=== PATIENT | male | born 1955 | race Caucasian/White ===

== ENCOUNTER 2016-10-10 11:10 | Inpatient (IN) ==
[2016-10-10] MEDS ORDERED: CATAPRES PO ONE (11:31)
[2016-10-10 12:10] LABS: MANUAL DIFF NEEDED? NO
[2016-10-10 12:16] LABS: ALLEN TEST YES; BE 19.4 mmoll (-3.0-3.0); BLOOD TYPE ARTERIAL; DRAW SITE R RADIAL; METHB 1.7 % (0.0-1.5); O2(CT) 14.6 mL/dL (15.0-23.0); PO2(98.6) 50 mmHg (60-100); SAMPLE BLOOD; SAO2 93.9 % (95.0-100.0); THB 11.8 g/dL (11.5-17.4); pH(98.6) 7.38 (7.35-7.45)
[2016-10-10 12:22] LABS: MODALITY CANNULA; PCO2(98.6) 82 mmHg (35-45)
[2016-10-10 12:23] LABS: BASO% 0.3 % (0.0-0.8); EOS# 0.04 X1000 (0.0-0.7); EOS% 0.7 % (0.0-10.0); HEMATOCRIT 37.6 % (42.0-52.0); LYMPH# 0.55 X1000 (1.2-3.4); MCH 32.1 PG (27-31); MCHC 31.9 g/dL (33-37); MCV 100.5 FL (81-99); MONO# 0.46 X1000 (0.11-0.59); MONO% 7.5 % (1.7-9.3); MPV 10.1 FL (7.4-10.4); NEUT% 82.5 % (42.2-75.2); PLT 209 X1000 (130-400); RBC 3.74 XMIL (4.7-6.1)
[2016-10-10 12:52] LABS: AGAP 6; ALBUMIN 3.7 g/dL (3.5-5.0); ALKALINE PHOSPHATASE 84 U/L (32-122); BUN 10 mg/dL (8-22); CALCIUM 9.1 mg/dL (8.8-10.2); CHLORIDE 87 mmol/L (98-107); COSMO 266; GOT 15 U/L (10-34); GPT 14 U/L (10-44); POTASSIUM 4.6 mmol/L (3.5-5.1); SODIUM 133 mmol/L (136-145); TCO2 40 mmol/L (25-35)
[2016-10-10] MEDS ORDERED: DUONEB (A & A) INH ONE (14:44)
--- NOTE | 2016-10-10 14:59 | Diag Imaging Result Document ---
PROCEDURE NAME: CHEST-PORTABLE - 10/10/2016 PORTABLE CHEST: FINDINGS: The lungs are hyperexpanded. The heart is not enlarged. The pulmonary vessels are small. There are scattered granuloma. No pleural effusions identified. No consolidation. IMPRESSION: 1. Emphysema. 2. Scattered granuloma. 3. Followup PA and lateral recommended to ensure there is no underlying larger nodule in the lower right lung.
[2016-10-10] MEDS ORDERED: PREDNISONE PO ONE (15:08)
[2016-10-10] MEDS ORDERED: ROCEPHIN 1 GM/NS 1 GM/50 ML IVPB IV ONE (15:39)
[2016-10-10] MEDS ORDERED: ZITHROMAX 500 MG/NS 500 MG/250 ML IVPB IV ONE (15:40)
[2016-10-10 16:06] LABS: URINE CULTURE NEEDED? NO; URINE MICRO REVIEW NEEDED? NO; URINE SOURCE CLEAN CATCH
[2016-10-10 16:11] LABS: BILIRUBIN URINE NEGATIVE (NEGATIVE); BLOOD URINE NEGATIVE (NEGATIVE); COLOR ORANGE; GLUCOSE URINE NEGATIVE (NEGATIVE); LEUKOCYTES URINE NEGATIVE (NEGATIVE); NITRITE URINE NEGATIVE (NEGATIVE); PROTEIN URINE TRACE mg/dL (NEGATIVE); SP GRAVITY URINE 1.014; TURBIDITY URINE HAZY (CLEAR); UR EPITHELIAL CELLS <10 /HPF (<10); URINE BACTERIA NEGATIVE /HPF; URINE RBC <10 /HPF (<10); URINE WBC <10 /HPF (<10); UROBILINOGEN URINE NORMAL (NORMAL)
--- NOTE | 2016-10-10 16:15 | EKG Report ---
Test Performed on : 10/10/2016 11:45:56 AM Test Reason : sob Blood Pressure : / mmHG Vent. Rate : 103 BPM Atrial Rate : 103 BPM P-R Int : 140 ms QRS Dur : 088 ms QT Int : 348 ms P-R-T Axes : 086 072 065 degrees QTc Int : 455 ms Sinus tachycardia. Cannot rule out Anterior infarct (cited on or before 12-JAN-2014) Abnormal ECG When compared with ECG of 12-AUG-2016 16:03, ST no longer depressed in Lateral leads Unconfirmed Result
[2016-10-10] MEDS ORDERED: PROTONIX IV ONE (18:16)
[2016-10-10] MEDS ORDERED: SODIUM CHLORIDE 0.9% INJ ONE (18:16)
[2016-10-10] MEDS: DUONEB (A & A) INH SCH ×2 (19:00→23:00)
--- NOTE | 2016-10-10 19:46 | HISTORY AND PHYSICAL ---
CHIEF COMPLAINT: Shortness of breath. HISTORY OF PRESENT ILLNESS: Mr. Cochran is a 61-year-old white gentleman, advanced case of severe COPD, chronic respiratory failure, complaining of increasing shortness of breath, decreased exercise tolerance, hypoxemia. The patient was not using his BiPAP properly. The patient was still smoking at home. Home health nurse called me a few times. I recommended him to go to the ER but the patient did not. He did not come for followup. The patient usually stays in the house. He had a cough and chest congestion. The patient claims he was feeling hot and cold. He did not check his temperature. The patient lost significant weight. Complaining of epigastric discomfort, at times nausea. No vomiting. Poor appetite. The patient does have early satiety. No diarrhea, blood, or mucus in the stool. Denied any dysuria or hematuria. The patient does have a problem with anxiety and nervousness. No heat or cold intolerance. The patient does feel depressed at times. No suicidal or homicidal ideation. No further history available at this time. ALLERGIES: No known drug allergies. HOME MEDICATION: Includes patient was on inhaler. The patient had a BiPAP machine, nebulizer, Lexapro, Flomax, Prilosec, Zantac. Patient is noncompliant to followup and following medical advice and patient was blaming his medical condition on his noncompliance. PAST MEDICAL HISTORY: Advanced COPD, chronic respiratory failure, gastritis. Patient was recommended to have upper GI long ago; patient did not follow through. Anxiety, BPH, situational depression. PERSONAL HISTORY: Single. Lives at home. Does smoke. Denied alcohol or substance abuse. Fairly independent in activities of daily living. The patient claims he does not go out of the house. FAMILY HISTORY: Noncontributory. REVIEW OF SYSTEMS: As per HPI. Otherwise unobtainable. PHYSICAL EXAMINATION: GENERAL: Middle-aged white gentleman in mild distress. VITAL SIGNS: Blood pressure 159/106, pulse 105, respirations 22. Temperature was normal. SKIN: Normal turgor. No rash or petechiae. HEENT: Head atraumatic, normocephalic. [place] conjunctivae. Anicteric sclerae. Extraocular muscle movement normal. Fundus cannot be penetrated. Good oral hygiene. No tonsillopharyngeal congestion or exudate. Ears and nose benign. NECK: Supple. No JVD, thyromegaly, or lymphadenopathy. CHEST: Bilateral air entry present. Bilateral expiratory wheezing. Decreased air entry in both bases. CARDIOVASCULAR: S1 and S2 heard. No gallop or thrill. ABDOMEN: Soft, scaphoid. Bowel sounds present. Mild epigastric tenderness. EXTREMITIES: No cyanosis, clubbing. Some wasting of muscles of the legs. TEACHER VOCATIONAL TRAINING: Alert, awake. Able to move all 4 limbs. VASCULAR: No DVT or acute vascular compromise in the leg. LAB DATA: Hemoglobin 12, hematocrit 37.6, WBC count 6.11, platelet count 209,000. PH 7.38, pCO2 82, PO2 was 50; this was done on 4 L via nasal cannula. Electrolytes did reveal mild hyponatremia. Urinalysis results reviewed. CONSIDERATION: 1. Acute on chronic respiratory failure. 2. Chronic obstructive pulmonary disease exacerbation. 3. Gastritis. 4. Benign prostatic hypertrophy. 5. Situational depression. 6. History of coronary artery disease and myocardial infarction in the past. PLAN: Admit the patient. IV antibiotics. GI and DVT prophylaxis. Oxygen, pulmonary toilet. Pulmonary consult with Dr. Lara. Overall plan discussed with the patient. Encouraged patient to quit smoking. cc: Toan Beckford MD
[2016-10-10] MEDS: FLOMAX PO SCH (21:45)
[2016-10-10] MEDS: PEPCID PO SCH (21:46)
[2016-10-10] MEDS: NICODERM PATCH TD SCH (21:48)
[2016-10-10] MEDS: LOVENOX SUBQ SCH (21:50)
[2016-10-11] MEDS: DUONEB (A & A) INH SCH ×5 (04:00→23:00)
[2016-10-11 05:00] LABS: MANUAL DIFF NEEDED? NO
[2016-10-11 05:04] LABS: BASO% 0.2 % (0.0-0.8); HEMATOCRIT 37.2 % (42.0-52.0); HEMOGLOBIN 11.7 g/dL (14.0-18.0); LYMPH# 0.63 X1000 (1.2-3.4); LYMPH% 14.9 % (20.5-51.1); MCH 31.4 PG (27-31); MCHC 31.5 g/dL (33-37); MCV 99.7 FL (81-99); MONO% 7.1 % (1.7-9.3); MPV 9.9 FL (7.4-10.4); NEUT% 77.8 % (42.2-75.2); PLT 215 X1000 (130-400); RBC 3.73 XMIL (4.7-6.1)
[2016-10-11 05:54] LABS: AGAP 5; ALBUMIN 3.4 g/dL (3.5-5.0); ALKALINE PHOSPHATASE 77 U/L (32-122); BUN 11 mg/dL (8-22); CALCIUM 9.2 mg/dL (8.8-10.2); CHLORIDE 90 mmol/L (98-107); COSMO 273; GOT 14 U/L (10-34); GPT 12 U/L (10-44); MAGNESIUM 1.9 mg/dL (1.5-2.7); POTASSIUM 4.8 mmol/L (3.5-5.1); SODIUM 137 mmol/L (136-145); TCO2 42 mmol/L (25-35); TOTAL BILIRUBIN 0.28 mg/dL (0.20-1.00); TOTAL PROTEIN 5.9 g/dL (6.3-8.3)
--- NOTE | 2016-10-11 07:38 | PROGRESS NOTE ---
DATE: 10/11/2016 SUBJECTIVELY: Mr. Cochran is feeling some better. Chest congestion and cough is less. No high-grade fever or chills. Mild epigastric discomfort. No nausea, complaining of discomfort due to lying in the emergency room stretcher. The patient claims he was taking Flomax at home. I will resume it. OBJECTIVE: Vital signs: Noted. Neck: Supple. No JVD. Lungs: Few basal crepitations. Occasional wheezing. CVS: S1 and S2 heard. Abdomen: Soft, globular. Bowel sounds present. ON AWAKE COUNSELOR: Alert, awake. Able to move all 4 limbs. CONSIDERATION: 1. The patient admitted with chronic respiratory failure. 2. Acute bronchitis. 3. Chronic obstructive pulmonary disease exacerbation. 4. Gastritis. 5. Benign prostatic hypertrophy. PLAN: Clinically, patient is doing fair. We will continue current treatment. Close observation. Dr. Lara is going to evaluate the patient. The patient does have end-stage COPD and chronic respiratory failure. I again emphasized smoking cessation. If clinical condition permits, we will plan discharging patient home soon. His blood work done this morning reviewed and it was satisfactory. cc: Toan Beckford MD
[2016-10-11] MEDS: MIRALAX PO SCH (09:39)
[2016-10-11] MEDS: NICODERM PATCH TD SCH (09:39)
[2016-10-11] MEDS ORDERED: SODIUM CHLORIDE 0.9% INJ SCH (10:45)
[2016-10-11] MEDS ORDERED: PROTONIX IV SCH (11:00)
--- NOTE | 2016-10-11 15:23 | CONSULTATION ---
DATE OF CONSULTATION: 10/11/2016 REQUESTING PHYSICIAN: Dr. Toan Beckford. REASON FOR CONSULTATION: Respiratory failure. HISTORY OF PRESENT ILLNESS: Mr. Cochran is a 61-year-old white male with end-stage COPD and ongoing tobacco abuse, who was last admitted to this hospital in July of this year. The patient's CO2 on that admission was 110. He was discharged 08/19/2016 with a Trilogy machine. The patient reports he has been using that machine. The patient does have periodic abdominal bloating following meals, which causes him to have respiratory distress. He reports he was being evaluated by the home health nurse yesterday and his Trilogy was off because he is developing some minor skin breakdown over the bridge of the nose. He was having some gaseous distention and was noted to be in respiratory distress, and it was recommended he be brought to the emergency room. He reports he has significantly improved over the last 12 hours. PAST MEDICAL HISTORY: 1. End-stage COPD with ongoing tobacco use. 2. Chronic hypoxemic and hypercapnic respiratory failure on oxygen and the Trilogy noninvasive ventilator. 3. Coronary artery disease, status post prior myocardial infarction. 4. Pulmonary cachexia. 5. Gastroesophageal reflux. 6. BPH. SOCIAL HISTORY: He is disabled. He lives at home with a 93-year-old mother and a brother who is disabled. He does have outside caregivers that help with activities of daily living, cooking, and cleaning. FAMILY HISTORY: Noncontributory to current presentation. REVIEW OF SYSTEMS: As noted in the HPI. PHYSICAL EXAMINATION: General: Reveals a frail, white male who is awake and alert, with mild accessory muscle use. Vital signs: Blood pressure 122/72, heart rate 96, respiratory rate 18, oxygen saturation 95% on 4L per nasal cannula. HEENT: Pupils are equal reactive. Oropharynx is clear. Neck: Supple. Chest: Reveals markedly diminished breath sounds throughout all lung hoff. Cardiac: Increased rate. Regular rhythm. Abdomen: Soft, without hepatosplenomegaly. Extremities: Reveal significant muscle wasting. LABORATORIES: Chest x-ray reveals severe hyperexpansion with thinning of the vessels. No acute changes are identified. White blood count is 4.24, hemoglobin 11.7, and platelet count 215,000. Arterial blood gas yesterday: pH 7.38, pCO2 of 82, PO2 of 50 on 4L per nasal cannula. IMPRESSION: A 61-year-old white male with hypoxemic and hypercapnic respiratory failure, ongoing tobacco use, and pulmonary cachexia. The patient reports intermittent shortness of breath following meals. Shortness of breath improves when he burps. The patient most likely has a component of aerophagia, which may be exacerbated by his Trilogy. This was discussed with the patient and told him this was a common phenomenon in patients with his end-stage lung disease. We also discussed palliative care and hospice care. He reports he is not ready to discuss either of these services at this juncture. He appears to be returning to his baseline. RECOMMENDATIONS: 1. Okay to transfer back home in the next 24-48 hours. 2. Cycle Trilogy/BiPAP as needed for comfort. 3. Patient should eat a soft (low-carbohydrate) diet which is high in sugar and fats to help him reach his caloric needs. 4. Smoking cessation was recommended. 5. Continued end of life issues, as outlined above. cc: MD Toan Harris MD
[2016-10-11] MEDS ORDERED: ROCEPHIN 1 GM/NS 1 GM/50 ML IVPB IV SCH (18:00)
[2016-10-11] MEDS: PEPCID PO SCH (20:12)
[2016-10-11] MEDS: FLOMAX PO SCH (20:13)
[2016-10-11] MEDS: LOVENOX SUBQ SCH (20:13)
[2016-10-12] MEDS: DUONEB (A & A) INH SCH ×3 (03:15→11:23)
[2016-10-12] MEDS: MIRALAX PO SCH (09:46)
[2016-10-12] MEDS: NICODERM PATCH TD SCH (09:46)
[2016-10-12 13:26] VITALS: BP 115/72
--- NOTE | 2016-10-12 19:40 | CONSULTATION ---
DATE OF CONSULTATION: 10/12/2016 REASON FOR CONSULTATION: Evaluation of this patient with significant weight loss, decreased appetite and inability to eat. HISTORY OF PRESENT ILLNESS: Mr. Cochran is a 61-year-old gentleman seen by me in the office on 04/05/2015. At that time his complaint was that he is very sick when he wakes up in the morning and after he has a bowel movement he feels better. Then he becomes sick again 3 or 4 times a day. His appetite was decreased and he lost weight. He had some dysphagia, heartburn, nausea, left and right lower quadrant pain. He had intermittent diarrhea and constipation. He had to make about 3 trip to the bathroom to completely evacuate his colon. At that time I scheduled him for EGD and colonoscopy, however, he did not get them done. He was admitted by Dr. Beckford because of advanced chronic obstructive pulmonary disease, significant weight loss and extreme shortness of breath. He was seen by Dr. Cruz whose impression it was that he had severe cachexia secondary to advanced COPD with chronic respiratory failure. He recommended that the patient be on hospice care. Because of his significant weight loss, Dr. Beckford wanted my opinion regarding what can be done. PAST MEDICAL HISTORY: 1. Chronic pulmonary disease with chronic respiratory failure. 2. History of gastritis. 3. Anxiety. 4. Benign prostatic hypertrophy. 5. Situational depression. 6. Gallbladder disease. 7. Hypercholesterolemia. 8. Osteoarthritis of the right acromioclavicular joint and impingement of the shoulder. 9. He had sciatica on the left side for 20 years. 10. Ischemic heart disease. 11. He denied any hypertension or diabetes. FAMILY HISTORY: There is a family history of some sort of cancer, diabetes, mental illness, heart disease and hypertension. SOCIAL HISTORY: Never abused alcohol. He had been a heavy smoker but cut down on the smoking now. REVIEW OF SYSTEMS: The patient has significant weight loss. He has problems swallowing. Because of extreme shortness of breath he is having problems continuously speaking. He does not have any serious abdominal pain but is quite hungry but unable to eat. He has some constipation. No blood in stool or black stool. ALLERGIES: He is allergic to bees, hydrocodone, acetaminophen, and tramadol. PHYSICAL EXAMINATION: General: The patient is alert, oriented x3. He seems emaciated. He is very short of breath with respiratory rate of about 24-26. Vital Signs: Temperature is 98.3 degrees, pulse rate is 110 per minute, blood pressure is 115/72. Lungs: Accessory muscles of respiration working. Neck: Supple. There is no thyromegaly. Cardiovascular: Sounds are heard. Rhythm is regular. I could not hear any murmur. Lungs: Reveal hyperresonance on percussion with a few bilateral crackles and rhonchi. Abdomen: Flat, soft, nontender. No masses felt. Bowel sounds are heard. Extremities: Free of any edema. LAB DATA: WBC count is 4.24, hemoglobin 11.7, hematocrit 37.2, platelet count is 215,000. His blood gases revealed that his pH is 7.38, pCO2 is 82, PO2 is 50 on room air. Oxygen saturation was 87.9. is also low. Sodium is 137, potassium 4.8, chloride is 90, CO2 is 42, BUN is 11, creatinine is 0.6. Total protein is 5.9, albumin is 3.4, PT and SGOT are normal. IMPRESSION: 1. Chronic obstructive pulmonary disease with emphysema. 2. Chronic respiratory failure. 3. Weight loss which is secondary to #1 and #2. RECOMMENDATIONS: His problem is he is unable to consume enough calories because he is so short of breath. When he tries to swallow and the epiglottis closes, he will become short of breath. So it is hard to swallow for him. I explained to him that he can eat a small amount of food multiple times a day and also drink some Ensure or Boost supplements to keep up the calories. Even drinking that could be difficult so I asked him to drink slowly. He should totally completely stop smoking but he is smoking still a few cigarettes and that will make a big difference. He needs a lot more calories than he is getting because work of breathing causes him to lose a lot of calories. I encouraged him to eat small meals. Endoscopic procedures are at this point going to be extremely risky for him. He already had a CT scan which does not show any significant tumor in the stomach, therefore, I have no reason to suspect that I need to actually look into the stomach in this high risk patient. He understood this. I discussed the case with Dr. Beckford. He is going to be put on hospice care. cc: Toan Beckford MD
--- NOTE | 2016-10-13 06:14 | DISCHARGE SUMMARY ---
ADMISSION DATE: 10/10/2016 DISCHARGE DATE: 10/12/2016 FINAL DISCHARGE DIAGNOSES: 1. Chronic respiratory failure. 2. Pulmonary cachexia. 3. Acute bronchitis. 4. Gastritis and reflux disease. 5. BPH. 6. Pulmonary nodule. HISTORY OF PRESENT ILLNESS: Mr. Cochran is a 61-year-old white gentleman, a known case of COPD, chronic respiratory failure, on home Trilogy, home oxygen, bronchodilator treatment, not doing well, complaining of cough, chest congestion, shortness of breath. The patient was seen by home health nurse. Convinced him to come to the hospital. The patient had evaluated in the ER. The patient was in [id number] respiratory failure. With his increasing cough, chest congestion, the patient was getting desaturated very easily in his oxygenation. We decided to admit the patient for further care. The patient was given prednisone, IV antibiotics, bronchodilator treatment. The patient refused to take prednisone. It was making him very sick. HOSPITAL COURSE: Pulmonary consult obtained with Dr. Lara, who know the patient for many years. We both think patient has end-stage COPD, chronic respiratory failure. We offered him palliative care. The patient claims he is not ready. The patient does not come for followup. Unfortunately, he is still smoking at home. The patient is noncompliant to follow medical advice. The patient is doing better. I advised him to go have followup with the line out man. The patient did not go, and now the patient claimed he cannot go. I talked to Dr. Little, who is going to evaluate the patient, but considering his overall health and condition, the patient is not even a candidate for endoscope. His CT scan done last visit reviewed. The patient is very eager to go home. Clinically, he regained his baseline status. PHYSICAL EXAMINATION: Vital Signs: Noted. Neck: Supple. No JVD. Lungs: Bibas[place] crepitations. Occasional wheezing. No movement of accessory muscles of respiration. Cardiovascular: S1 and S2 heard. Abdomen: Soft, scaphoid. Bowel sounds present. No acute DVT. Central Nervous System: Alert, awake, able to move all 4 limbs. LABORATORY DATA: Yesterday, hemoglobin 11.7, hematocrit 37.2, platelet count 215, WBC count 4.24. Blood gas on admission: pH 7.38, pCO2 of 82, PO2 was 50. Electrolytes were fairly benign. BUN 11, creatinine 0.6. Urinalysis and chest x-ray results reviewed. DISCHARGE PLAN: I am going to discharge patient home on p.o. antibiotics. The patient cannot tolerate prednisone well, and he is doing okay without it. Will continue Prilosec, Flomax. I gave him a prescription for a nebulizer, which he will need for his respiratory failure, DuoNeb. Will resume home health. Follow up with me in 2 weeks. In case of more distress, call us back or go to the emergency room. Overall, discharge condition satisfactory. cc: Toan Beckford MD
--- NOTE | 2016-10-17 05:43 | PROVIDER DOCUMENTATION ---
This chart was entered by Raul Sullivan Scribe, acting as scribe for Chris Hobson MD. HPI-Respiratory General - General Stated Complaint: sob Time Seen by Provider: 10/10/16 11:19 Source: patient Allergies/Adverse Reactions: Patient Allergies Allergy/AdvReac Type Severity Reaction Status Date / Time No Known Allergies Allergy Verified 08/12/16 16:29 Home Medications: Home Medication List Medication Instructions Recorded Confirmed Last Taken Type Albuterol Sulfate [Proair Hfa] 2 puff IH Q4H PRN PRN 01/11/14 10/10/16 10/10/16 08:00 History Mometasone/Formoterol [Dulera 200 2 puff IH BID 01/11/14 10/10/16 10/10/16 08: 00 History Mcg/5 Mcg Inhaler] Tiotropium [place] Inhaler 1 puff INH QAM 01/11/14 10/10/16 10/10/16 08:00 History [Spiriva] Omeprazole [Prilosec] 40 mg PO DAILY #30 capsule. 01/13/14 10/10/16 10/09/16 08:00 Rx Nicotine Patch [Nicoderm Patch] 21 mg TD DAILY #0 [email or web address] 08/19/16 10/10/16 Unknown Rx Polyethylene Glycol 3350 [Miralax] 17 gm PO DAILY #30 powd.pack 08/19/16 Unknown Rx Saline Nasal [place] [[place] Nasal 2 ml YOANA PRN PRN #0 bottle 08/19/16 10/10/16 Unknown Rx [place]] Tamsulosin [Flomax] 0.4 mg PO QHS #0 capsule 08/19/16 10/10/16 10/09/16 20:00 Rx Albuterol 2.5MG/Ipratrop 0.5MG 3 ml INH Q4H neb 10/12/16 Unknown Rx [Duoneb (A & A)] CefUROXIME [Ceftin] 500 mg PO Q12HR #10 tablet 10/12/16 Unknown Rx - History of Present Illness-Resp Nature of Presenting Problem: 61 Y/O M PRESENTS TO THE ED C/O SHORTNESS OF BREATH. ONSET THIS MORNING. UPON EMS ARRIVAL PATIENT WAS 88% ON 3L NASAL. FAMILY STATES PATIENT RECENTLY TREATED FOR INFLUENZA. DENIES CHEST PAIN AND ALL OTHER SYMPTOMS. NO OTHER VOICED COMPLAINTS. Quality of Pain: reports: none Severity in ED: reports: mild Onset/Duration: reports: this morning Timing: reports: still present Exposure: reports: unknown cause Cough Quality/Degree: reports: no cough Current Respiratory Medication Therapy: Initiated see nurses note Modifying Factors: worse with: exertion Associated Symptoms: reports: shortness of breath Similar Symptoms Previously?: Yes Recently seen or treated by another doctor?: No Review of Systems - Adult - REVIEW OF SYSTEMS - ADULT Constitutional: denies: chills, fever Eyes: reports: no symptoms reported Ears, Nose, Mouth & Throat: reports: no symptoms reported Cardiovascular: denies: chest pain, palpitations Respiratory: reports: shortness of breath. denies: cough Gastrointestinal: denies: diarrhea, nausea, vomiting Genitourinary: denies: dysuria, frequency Musculoskeletal: denies: bone pain, muscle aches Integumentary: denies: itching, rash Neurological: denies: dizziness/vertigo, headache/migraines Psychiatric: reports: no symptoms reported Endocrine: reports: no symptoms reported Hematologic/Lymphatic: reports: no symptoms reported Allergic/Immunologic: reports: no symptoms reported All Other Systems: Reviewed and Negative Past History - Adult - PAST MEDICAL HISTORY-ADULT Review of Records: reports: Nursing Assessment Review, Medications Reviewed Major Childhood Illnesses: reports: denies history Cardiovascular: reports: HTN Respiratory: reports: COPD, other (home O2) Gastrointestinal: reports: cholelithiasis Obstetrical/Gynecological: reports: denies history Genitourinary: reports: denies history Musculoskeletal: reports: denies history Neurological: reports: denies history Endocrine/Immune: reports: denies history Other Conditions: reports: denies history - FAMILY HISTORY Family History: reviewed, not pertinent Physical Exam-General - PHYSICAL EXAM-ADULT Initial Vital Signs Reviewed: Yes - CONSTITUTIONAL General Appearance: alert, moderate distress, anxious - EYES Eyes: PERRL/EOMI, pink conjunctivae - HEAD, EARS, NOSE, MOUTH & THROAT HENMT: moist mucous membranes, normal ENT inspection - NECK Neck: full range of motion, normal inspection - RESPIRATORY Respiratory: normal breath sounds, no pleuratic chest pain, respiratory distress , accessory muscle use - CARDIOVASCULAR Cardiovascular: normal peripheral pulses, tachycardia - GASTROINTESTINAL (ABDOMEN) Abdominal Exam: normal bowel sounds, non tender, soft - MUSCULOSKELETAL Back Exam: normal inspection, no vertebral tenderness Extremity: normal range of motion, normal capillary refill - SKIN Integumentary: normal color, diaphoresis - NEUROLOGIC Neurologic: slag wheeler II-XII nml as tested, no motor/sensory deficits - PSYCHIATRIC Psych/Mental Status: normal mood/affect, oriented x 3 Progress - PLAN OF CARE/RESULTS Progress/Plan/Lab Results: Orders Category Date Time Status Admit Patient To Inpatient Status Routine AdmDCTranf 10/10/16 15:38 Ordered Nursing- MD Consult Request ROUTINE Care 10/10/16 22:34 Active Physician/Provider Consults Routine Cons 10/10/16 22:34 Ordered Regular Diet Diet 10/10/16 15:16 Completed cxr [CHEST-PORTABLE] [RAD] Stat Exams 10/10/16 11:42 Completed ABG [RESP] Routine Lab 10/10/16 12:05 Completed BLOOD CULTURE [BLDCUL] Stat Lab 10/10/16 16:05 Completed CBC WITH DIFF [HEME] Routine Lab 10/11/16 04:50 Completed CBC WITH ELECTRONIC DIFF [HEME] Stat Lab 10/10/16 12:00 Completed CMP [COMPREHENSIVE METABOLIC PANEL] [CHEM] Stat Lab 10/10/16 12:00 Completed COMPREHENSIVE METABOLIC PANEL [CHEM] Routine Lab 10/11/16 04:50 Completed MAGNESIUM [CHEM] Routine Lab 10/11/16 04:50 Completed UA NIMS W/REFLEX CULT [URINALYSIS] Stat Lab 10/10/16 13:08 Completed Albuterol 2.5MG/Ipratrop 0.5MG [Duoneb (A & A)] Med 10/10/16 14:44 Discontinued 3 ml INH NOW ONE Albuterol 2.5MG/Ipratrop 0.5MG [Duoneb (A & A)] Med 10/10/16 19:00 Discontinued 3 ml INH Q4H Azithromycin 500 mg/Ns [Zithromax 500 mg/Ns] Med 10/10/16 15:40 Discontinued 500 mg in 250 ml IV NOW CefTRIAXONE 1 GM/NS [Rocephin 1 gm/Ns] Med 10/10/16 15:39 Discontinued 1 gm in 50 ml IV NOW CefTRIAXONE 1 GM/NS [Rocephin 1 gm/Ns] Med 10/11/16 18:00 Discontinued 1 gm in 50 ml IV Q24H Clonidine [Catapres] Med 10/10/16 11:31 Discontinued 0.2 mg PO NOW ONE Enoxaparin [Lovenox] Med 10/10/16 20:00 Discontinued 30 mg SUBQ Q24H Famotidine [Pepcid] Med 10/10/16 21:00 Discontinued 40 mg PO QHS Nicotine Patch [Nicoderm Patch] Med 10/10/16 20:00 Discontinued 21 mg TD DAILY Pantoprazole [Protonix] Med 10/10/16 18:16 Discontinued 40 mg IV NOW ONE Polyethylene Glycol 3350 [Miralax] Med 10/11/16 09:00 Discontinued 17 gm PO DAILY Prednisone Med 10/10/16 15:08 Discontinued 60 mg PO NOW ONE Sodium Chloride 0.9% Med 10/10/16 18:16 Discontinued 10 ml INJ NOW ONE Tamsulosin [Flomax] Med 10/10/16 21:00 Discontinued 0.4 mg PO QHS Aerosol Treatments Routine Oth 10/10/16 14:44 Completed Aerosol Treatments Routine Oth 10/10/16 18:18 Completed Aerosol Treatments Stat Oth 10/10/16 14:44 Completed Aerosol Treatments Stat Oth 10/10/16 18:18 Completed EKG [EKG] Stat Ther 10/10/16 11:42 Draft Transfer/Admit Order [TRANSFER] Routine Transfer 10/10/16 18:33 Completed Result Diagrams: 10/11/16 04:50 10/11/16 04:50 - EKG 1 Time of EKG reading by physician:: 11:48 EKG Read and Signed by:: Rosas Hernandez EKG Interpretation (*Must complete 3 of following elements*): Abnormal Rate: 103 Rhythm: sinus tachycardia [place]: normal QRS: normal DE Interval: normal ST Wave: normal - XRAY 1 XRAY Study: Chest Impression: Abnormal, See EMR Report (emphysema; scattered granuloma) - CONSULTS/PCP/HOSPITALIST Notification #1 *Consult/PCP/Hospitalist*: Dr Beckford Time Discussed: 15:35 Consult Disposition: Admit Departure - Departure Time of Disposition Decision: 15:38 DIAGNOSIS: COPD exacerbation Disposition: ADMITTED INPATIENT 09 Certified Medical Emergency: Emergent Condition: Stable - Critical Care Note This patient required my direct & personal management of CC.: No This chart was documented by the indicated scribe, (Raul Sullivan Scribe) and accurately reflects the services I performed and decisions made by me, Chris Hobson MD, as attested by the provider's signature.
== END 2016-10-12 15:25 | disposition home or self-care (01) ==
LOC: ED 11:10 → EDIPHOLD 19:50 → 3N 10-11 14:49
PROVIDERS: ADMIT Internal Medicine; ATTEND Internal Medicine

== ENCOUNTER 2017-01-04 19:56 | Inpatient (IN) ==
[2017-01-04] MEDS ORDERED: SOLU-MEDROL IV ONE (20:12)
[2017-01-04 20:21] LABS: ALLEN TEST YES; BE 19.4 mmoll (-3.0-3.0); BLOOD TYPE ARTERIAL; DRAW SITE R BRACHIAL; METHB 1.1 % (0.0-1.5); O2(CT) 16.1 mL/dL (15.0-23.0); PO2(98.6) 128 mmHg (60-100); SAMPLE BLOOD; SAO2 99.9 % (95.0-100.0); THB 12.1 g/dL (11.5-17.4); pH(98.6) 7.31 (7.35-7.45)
[2017-01-04 20:24] LABS: MODALITY BI PAP; PCO2(98.6) 100 mmHg (35-45)
[2017-01-04 20:31] LABS: BASO% 0.3 % (0.0-0.8); EOS# 0.05 X1000 (0.0-0.7); EOS% 0.3 % (0.0-10.0); HEMOGLOBIN 12.7 g/dL (14.0-18.0); IMM GRAN# 0.04 X1000 (0.0-0.04); IMM GRAN% 0.3 % (0.0-0.5); LYMPH# 1.09 X1000 (1.2-3.4); MANUAL DIFF NEEDED? NO; MCH 32.3 PG (27-31); MCV 104.3 FL (81-99); MONO# 1.71 X1000 (0.11-0.59); MONO% 10.9 % (1.7-9.3); MPV 10.6 FL (7.4-10.4); NEUT% 81.2 % (42.2-75.2); PLT 239 X1000 (130-400); RBC 3.93 XMIL (4.7-6.1)
--- NOTE | 2017-01-04 20:36 | Diag Imaging Result Doc PS360 ---
EXAM: CHEST-PORTABLE HISTORY: copd TECHNIQUE: Erect AP portable chest at 2019 COMMENT: There is COPD with hyperinflation of the lungs. There are apparent pleural calcifications bilaterally. There is increased interstitial opacity in the left lower lobe compared to 10/10/2016. Otherwise has been no significant change. IMPRESSION: COPD. The left lower lobe bronchopneumonia. Electronically signed by Brannon Maza 01/04/2017 8:33 PM
[2017-01-04 20:46] LABS: AGAP 7; ALKALINE PHOSPHATASE 103 U/L (32-122); BUN 15 mg/dL (8-22); CALCIUM 9.3 mg/dL (8.8-10.2); CHLORIDE 90 mmol/L (98-107); COSMO 279; GOT 19 U/L (10-34); GPT 16 U/L (10-44); POTASSIUM 4.7 mmol/L (3.5-5.1); SODIUM 139 mmol/L (136-145); TCO2 42 mmol/L (25-35); TOTAL BILIRUBIN 0.56 mg/dL (0.20-1.00); TOTAL PROTEIN 7.2 g/dL (6.3-8.3)
[2017-01-04] MEDS ORDERED: TYLENOL PO PRN (23:29)
[2017-01-04] MEDS: DUONEB (A & A) INH SCH (23:45)
[2017-01-05] MEDS: LEVAQUIN 750 MG/D5W 750 MG/150 ML IVPB IV SCH ×2 (00:16→22:44)
[2017-01-05] MEDS: MORPHINE IV PRN ×3 (00:16→20:02)
[2017-01-05] MEDS: PROTONIX IV SCH ×2 (00:16→22:44)
[2017-01-05] MEDS: DUONEB (A & A) INH SCH ×6 (03:12→23:27)
[2017-01-05 04:51] LABS: BASO% 0.1 % (0.0-0.8); HEMATOCRIT 35.3 % (42.0-52.0); HEMOGLOBIN 10.8 g/dL (14.0-18.0); IMM GRAN# 0.03 X1000 (0.0-0.04); IMM GRAN% 0.2 % (0.0-0.5); LYMPH# 0.32 X1000 (1.2-3.4); LYMPH% 2.5 % (20.5-51.1); MANUAL DIFF NEEDED? YES; MCH 31.9 PG (27-31); MCHC 30.6 g/dL (33-37); MCV 104.1 FL (81-99); MONO# 0.22 X1000 (0.11-0.59); MONO% 1.7 % (1.7-9.3); MPV 10.2 FL (7.4-10.4); NEUT% 95.5 % (42.2-75.2); PLT 199 X1000 (130-400); RBC 3.39 XMIL (4.7-6.1)
[2017-01-05 05:11] LABS: AGAP 3; BUN 15 mg/dL (8-22); CALCIUM 9.3 mg/dL (8.8-10.2); CHLORIDE 89 mmol/L (98-107); COSMO 277; SODIUM 137 mmol/L (136-145); TCO2 45 mmol/L (25-35)
[2017-01-05 05:25] LABS: BANDS 6 % (0-1); LYMPHS 4 % (21-51); MONO 2 % (1-9)
[2017-01-05] MEDS ORDERED: ROCEPHIN 1 GM/NS 1 GM/50 ML IVPB IV SCH (11:30)
[2017-01-05] MEDS ORDERED: VANCOMYCIN IV PER PHARMACY MISC SCH (11:45)
[2017-01-05] MEDS: SOLU-MEDROL IV SCH ×2 (12:11→22:44)
[2017-01-05] MEDS ORDERED: VANCOMYCIN 1,800 MG in NS 250 ML IV ONE (14:00)
--- NOTE | 2017-01-05 14:23 | PROGRESS NOTE ---
DATE: 01/05/2017 A 61-year-old, white gentleman, advanced COPD, chronic respiratory failure with hypercarbia. Not doing well last few days. The patient had increasing shortness of breath, feeling hot and cold, increasing cough. His O2 saturation at home was low. Patient called ambulance, was brought to the emergency room. In the emergency room patient found to have hypercarbic respiratory failure. Chest x-ray showed COPD, left lower lobe bronchopneumonia. Patient evaluated and admitted for further care. The patient is very noncompliant. After discharge from last hospitalization the patient did not come for followup with me or either with the energy trading analyst. The patient is still smoking though patient claimed lately he was not able to smoke. Oral intake is fair to poor. Unquantified weight loss. He does have chronic abdominal pain. The patient denied any dysuria or hematuria. At times, urinary hesitancy. No diarrhea. History part was limited. PAST MEDICAL HISTORY: Advanced COPD, chronic respiratory failure, history of BPH, gastritis, pulmonary cachexia, coronary artery disease. OBJECTIVE: Vital Signs: Vital signs noted. Patient currently is on BiPAP. Neck: Is supple. No JVD. The patient does have the redness on the nose due to his mask of BiPAP. Lungs: Bilateral inspiratory crepitations. CVS: S1 and S2 heard. Abdomen: Soft, globular. Bowel sounds present. Extremities: No cyanosis, clubbing. No acute DVT. WAITER/WAITRESS FORMAL: Alert, awake able to move all 4 limbs. LABORATORY DATA: Did reveal leukocytosis with left shift. Blood gas did reveal hypercarbic respiratory failure. Electrolytes: BUN was 15, creatinine 0.5. Chest x-ray results reviewed. CONSIDERATION: Chronic respiratory failure. The patient does have hypercarbia, pulmonary cachexia, pneumonia, gastritis, BPH, coronary artery disease. The patient requested DNR but patient claims he is not sure. He may change his mind. Meanwhile will continue broad-spectrum antibiotics. Pulmonary toilet. Close observation. BiPAP. Overall plan discussed with the patient. GI prophylaxis and DVT prophylaxis. cc: Toan Beckford MD
--- NOTE | 2017-01-05 19:38 | CONSULTATION ---
DATE OF CONSULTATION: 01/05/2017 REQUESTING PHYSICIAN: Toan Beckford MD. REASON FOR CONSULTATION: Respiratory failure. HISTORY OF PRESENT ILLNESS: Mr. Cochran is a 61-year-old, white male with end-stage COPD, chronic hypoxemic and hypercapnic respiratory failure, who was last admitted to this hospital in September of this year with a pCO2 greater than 100. The patient was discharged home to [facility]. The patient continues to smoke. He has not followed up with his physician but paperwork has been arranged for ongoing treatment from the office. The patient reports 3-4 days ago he developed increased cough without significant sputum production, fevers and shaking chills, and progressive decrease in his oxygen saturation below 85 despite supplemental oxygen. The patient called an ambulance and was brought to the emergency room. Arterial blood gas revealed pH 7.31, pCO2 of 100, PO2 of 128 on 60% FiO2. Chest x-ray reveals new infiltrate in the left lung base. PAST MEDICAL HISTORY: 1. End-stage COPD with ongoing tobacco use. 2. Pulmonary cachexia. 3. Coronary artery disease with prior myocardial infarction. 4. Status post cholecystectomy. 5. Gastroesophageal reflux. 6. BPH. SOCIAL HISTORY: Patient is disabled. He also takes care of a brother who is disabled and has psychiatric issues. He has an elderly mother who he also helps to manage care. He previously worked as an EMT. No alcohol use. FAMILY HISTORY: Noncontributory to current presentation. REVIEW OF SYSTEMS: As noted in the HPI. PHYSICAL EXAMINATION: General: Reveals a frail, cachectic, skeletal white male who appears older than his stated age of 61. He is disheveled. Vital Signs: BP 120/64, heart rate 91, respiration rate 19, oxygen saturation 96% on 50% face mask. HEENT: Mild temporal wasting. HEENT: Pupils are equal and reactive. Oropharynx is clear. Neck: Supple. Chest: Reveals markedly diminished chest wall body fat and muscle. Breath sounds are markedly diminished. Minimal distant wheeze and rhonchi can be appreciated. Cardiac Examination: Distant heart sounds. Normal S1, normal S2. Abdomen: Soft/scaphoid and without hepatosplenomegaly. Extremities: Without edema. IMPRESSION: A 61-year-old white male with end-stage chronic obstructive pulmonary disease, chronic hypoxemic respiratory failure, chronic hypercapnic respiratory failure requiring [facility], who presents with acute hypoxemic respiratory failure, acute hypercapnic respiratory failure, fevers, chills, leukocytosis, and left lower lobe pneumonia. The patient has been initiated on broad-spectrum antibiotics covering both gram-negatives and gram-positives. RECOMMENDATIONS: 1. Continue current antibiotic regimen as you are doing. 2. Cycle BiPAP for his hypoxemic and hypercapnic respiratory failure. 3. Continue bronchodilators. 4. Agree with current steroid dosing. 5. Smoking cessation has been repeatedly recommended. 6. Agree with current code status. It is unlikely I will be able to successfully liberate him from mechanical ventilation if he is intubated. cc: MD Toan Harris MD
[2017-01-05] MEDS: BACTROBAN OINTMENT TOP SCH ×2 (19:47→21:58)
[2017-01-05] MEDS: ZOFRAN IV PRN (21:00)
--- NOTE | 2017-01-05 22:06 | HISTORY AND PHYSICAL ---
CHIEF COMPLAINT: Shortness of breath. HISTORY OF PRESENTING ILLNESS: This is a 61-year-old male with a history of COPD on home oxygen, and GERD, had presented to the emergency department with several days' history of having shortness of breath, cough and not feeling well. He apparently was seen in the ER, and he was found to be in respiratory failure. He was put on BiPAP and patient will need admission for further evaluation and management. At the time of my examination, he had denied any headache, fever, chills, chest pain, hemoptysis, but admitted to having cough and being short of breath. The patient apparently had imaging done which did show that he had a pneumonia, and he will be treated with IV antibiotics. PAST MEDICAL HISTORY: Includes COPD on home oxygen, and GERD. PAST SURGICAL HISTORY: Cholecystectomy. ALLERGIES: No known drug allergies. CURRENT MEDICATIONS: As listed in the medication reconciliation sheet. SOCIAL HISTORY: A 40-pack year history of smoking. Denies any history of alcohol or illicit drug use. FAMILY HISTORY: No history of coronary disease. REVIEW OF SYSTEMS: Twelve point review of systems is as in HPI. Other systems negative. PHYSICAL EXAMINATION: GENERAL: Somewhat disheveled, frail, male. He is in respiratory distress. VITAL SIGNS: Temperature 97.6 degrees, pulse 125, respirations 28, blood pressure 116/69. HEENT: Atraumatic, normocephalic. Extraocular movements intact. PERRLA. NECK: No masses. CHEST: Rhonchi. CARDIOVASCULAR: Regular rate and rhythm. ABDOMEN: Soft. Positive bowel sounds. EXTREMITIES: No edema. NEURO: He is awake, alert, oriented x3. : No bladder distention. SKIN: Warm. LABORATORIES AND STUDIES: WBC 15.67, hemoglobin 12.7, hematocrit 41.0, platelets 239,000. Blood gases shows a pCO2 of 100, sodium 139, potassium 4.7, chloride 90, CO2 is 42, BUN is 15, creatinine 0.5, glucose is 117. Chest x-ray shows left lower lobe bronchopneumonia. ASSESSMENT: A 61-year-old male with a history of chronic obstructive pulmonary disease, on home oxygen, and gastroesophageal reflux disease who presented to the emergency department with several days' history of shortness of breath and cough. He was evaluated in the emergency room. He is found to be in respiratory failure. He was put on BiPAP. He had imaging done which did show he had pneumonia. Subsequently, he will need hospitalization for further management. 1. Acute hypercapnic respiratory failure. 2. Community-acquired pneumonia. 3. Gastroesophageal reflux disease. 4. Ongoing tobacco abuse. PLAN: 1. We will admit patient to [facility]. 2. We will continue patient on BiPAP. 3. We will continue with DuoNebs. 4. We will check blood cultures and start patient on IV antibiotics. 5. Continue patient on a PPI. 6. I counseled patient extensively on smoking cessation. 7. We will put patient on DVT prophylaxis with SCDs. 8. We will continue to follow and reassess. cc: MD Rao Reynoso MD
[2017-01-05] MEDS: SODIUM CHLORIDE 0.9% INJ SCH (22:44)
[2017-01-06] MEDS: VANCOMYCIN 1,400 MG in NS 250 ML IV SCH ×2 (02:52→16:25)
[2017-01-06] MEDS: DUONEB (A & A) INH SCH ×6 (03:24→23:13)
[2017-01-06 06:14] LABS: BASO% 0.1 % (0.0-0.8); HEMATOCRIT 34.8 % (42.0-52.0); HEMOGLOBIN 10.7 g/dL (14.0-18.0); IMM GRAN# 0.02 X1000 (0.0-0.04); IMM GRAN% 0.2 % (0.0-0.5); LYMPH# 0.26 X1000 (1.2-3.4); LYMPH% 2.3 % (20.5-51.1); MANUAL DIFF NEEDED? YES; MCH 31.9 PG (27-31); MCHC 30.7 g/dL (33-37); MCV 103.9 FL (81-99); MONO# 0.25 X1000 (0.11-0.59); MONO% 2.3 % (1.7-9.3); MPV 10.6 FL (7.4-10.4); NEUT% 95.1 % (42.2-75.2); PLT 229 X1000 (130-400); RBC 3.35 XMIL (4.7-6.1)
[2017-01-06 06:38] LABS: AGAP 2; ALBUMIN 3.2 g/dL (3.5-5.0); ALKALINE PHOSPHATASE 71 U/L (32-122); BUN 15 mg/dL (8-22); CALCIUM 9.1 mg/dL (8.8-10.2); CHLORIDE 92 mmol/L (98-107); COSMO 282; GOT 12 U/L (10-34); GPT 13 U/L (10-44); POTASSIUM 4.7 mmol/L (3.5-5.1); SODIUM 140 mmol/L (136-145); TCO2 46 mmol/L (25-35); TOTAL BILIRUBIN 0.22 mg/dL (0.20-1.00); TOTAL PROTEIN 5.7 g/dL (6.3-8.3)
[2017-01-06 07:58] LABS: BANDS 2 % (0-1); HYPOCHROM 2+; MONO 2 % (1-9)
[2017-01-06] MEDS: BACTROBAN OINTMENT TOP SCH ×3 (08:33→21:04)
[2017-01-06] MEDS: SOLU-MEDROL IV SCH ×3 (08:38→20:29)
[2017-01-06] MEDS ORDERED: MILK OF MAGNESIA PO PRN (11:44)
--- NOTE | 2017-01-06 14:12 | PROGRESS NOTE ---
DATE: 01/06/2017 SUBJECTIVE: Patient overall stable. No major complaints. OBJECTIVE: Afebrile. Pulse 96, respirations 20, blood pressure 96/54, O2 saturation on Ventimask 97%. I's and O's show 1540 in, 1600 out. He consumed 75% of his meal this morning. No bowel movement about 2-3 days. Blood cultures x2 remain negative. Sputum culture in progress. LABS: Sodium 140, potassium 4.7, chloride 92, CO2 46, BUN 15, creatinine 0.5, magnesium 2.0, calcium 9.1. LFTs normal. Albumin 3.2. White count 11, hemoglobin 10.7, platelets 229,000. ASSESSMENT: 1. Chronic respiratory failure with hypercapnia. 2. Left lower lobe pneumonia. 3. Coronary artery disease. 4. History of gastritis. 5. Benign prostatic hypertrophy. 6. Cachexia. PLAN: Continue BiPAP at night. Ventimask during the day. Continue antibiotics in the form of Levaquin and vancomycin. Continue nebulizer treatments, steroids, morphine if required. Will leave DVT prophylaxis to Dr. Lara, who will continue peptic ulcer disease prophylaxis with Protonix. Will add laxative as needed. cc: MD Toan James MD
[2017-01-06] MEDS: SODIUM CHLORIDE 0.9% INJ SCH (20:29)
[2017-01-06] MEDS: PROTONIX IV SCH (20:29)
[2017-01-06] MEDS: LEVAQUIN 750 MG/D5W 750 MG/150 ML IVPB IV SCH (22:33)
[2017-01-06] MEDS: MORPHINE IV PRN (23:39)
[2017-01-07] MEDS: VANCOMYCIN 1,400 MG in NS 250 ML IV SCH ×2 (02:54→16:02)
[2017-01-07] MEDS: DUONEB (A & A) INH SCH ×6 (03:48→22:59)
[2017-01-07] MEDS: SOLU-MEDROL IV SCH ×2 (08:18→19:44)
[2017-01-07] MEDS: BACTROBAN OINTMENT TOP SCH ×2 (08:19→21:31)
[2017-01-07] MEDS: ZOFRAN IV PRN (14:25)
--- NOTE | 2017-01-07 16:08 | PROGRESS NOTE ---
DATE: 01/07/2017 SUBJECTIVE: Patient had good bowel movement this morning. He is stable. He was able to cough up some material this morning which he thinks has helped his breathing slightly. OBJECTIVE: Vital signs: Afebrile, pulse 105, respirations 20, blood pressure 136/64, O2 saturation on Ventimask 94%. CV: Tachycardia, regular rhythm. Lungs: Distant breath sounds. CTA. Abdomen: Soft, nondistended, nontender. Extremities: No edema, calf tenderness or cords. ASSESSMENT: 1. Chronic respiratory failure with hypercapnia and chronic obstructive pulmonary disease. 2. Left lower lobe pneumonia. 3. Coronary artery disease. 4. History of gastritis. 5. Benign prostatic hypertrophy. 6. Cachexia. PLAN: Continue Ventimask during the day and BiPAP at night. Continue antibiotics in the form of Levaquin and vancomycin, nebulizer treatments, steroids, morphine p.r.n. and continue peptic ulcer disease prophylaxis with Protonix. Continue supportive care. Counseled the patient in regard to smoking cessation. Continue to follow the patient clinically. cc: MD Toan James MD
[2017-01-07] MEDS: SODIUM CHLORIDE 0.9% INJ SCH (19:44)
[2017-01-07] MEDS: PROTONIX IV SCH (19:44)
[2017-01-07] MEDS: LEVAQUIN 750 MG/D5W 750 MG/150 ML IVPB IV SCH (23:21)
[2017-01-08] MEDS: VANCOMYCIN 1,400 MG in NS 250 ML IV SCH ×2 (02:35→16:00)
[2017-01-08] MEDS: DUONEB (A & A) INH SCH ×6 (03:55→22:48)
[2017-01-08 05:11] LABS: MANUAL DIFF NEEDED? NO
[2017-01-08 05:16] LABS: HEMATOCRIT 38.7 % (42.0-52.0); HEMOGLOBIN 11.8 g/dL (14.0-18.0); IMM GRAN# 0.02 X1000 (0.0-0.04); IMM GRAN% 0.3 % (0.0-0.5); LYMPH# 0.43 X1000 (1.2-3.4); LYMPH% 5.5 % (20.5-51.1); MCH 31.6 PG (27-31); MCHC 30.5 g/dL (33-37); MCV 103.8 FL (81-99); MONO# 0.75 X1000 (0.11-0.59); MONO% 9.6 % (1.7-9.3); NEUT% 84.6 % (42.2-75.2); PLT 271 X1000 (130-400); RBC 3.73 XMIL (4.7-6.1)
[2017-01-08 06:11] LABS: AGAP 3; ALBUMIN 3.3 g/dL (3.5-5.0); ALKALINE PHOSPHATASE 73 U/L (32-122); BUN 12 mg/dL (8-22); CALCIUM 9.2 mg/dL (8.8-10.2); CHLORIDE 87 mmol/L (98-107); COSMO 279; GOT 12 U/L (10-34); GPT 17 U/L (10-44); MAGNESIUM 2.1 mg/dL (1.5-2.7); POTASSIUM 4.6 mmol/L (3.5-5.1); SODIUM 139 mmol/L (136-145); TCO2 49 mmol/L (25-35); TOTAL BILIRUBIN 0.14 mg/dL (0.20-1.00); TOTAL PROTEIN 5.6 g/dL (6.3-8.3)
--- NOTE | 2017-01-08 06:45 | PROGRESS NOTE ---
DATE: 01/08/2017 SUBJECTIVE: Mr. Cochran is doing fair. Today, he was complaining of diarrhea which was loose stool. No blood or mucus in the stool. No abdominal cramps. No high-grade fever or chills. The patient does have a cough, dyspnea on exertion. The patient was smoking in the room. He was instructed not to do so by nursing staff. I did discuss with him about short-term rehab. The patient understood the importance but refused. He denied any high-grade fever or chills. No typical chest pain. The patient claimed that he was not able to sleep well, most likely due to steroid. OBJECTIVE: Vital Signs: Vital signs noted. Neck: Supple. No JVD. HEENT: Redness on the nose improving. CVS: S1 and S2. Tachycardia. Abdomen: Soft. No distention. Bowel sounds present. Extremities: No cyanosis, clubbing. No acute DVT. DATA ABSTRACTOR: Alert, awake. Able to move all 4 limbs. CONSIDERATION: Patient admitted with hypercapnic respiratory failure. Found to have pneumonia. The patient had abrasion on the nose secondary to his CPAP. His other problems include diarrhea. We will check stool workup. Benign prostatic hypertrophy, gastritis and reflux disease, pulmonary cachexia. Labs and medication noted. I am going to decrease steroid to 20 mg and then stop after last dose today. The patient refused to go to any rehab. He wants to go back home. Encouraged smoking cessation. I am going to repeat chest x-ray. The patient does have very advanced lung disease. cc: Toan Beckford MD
--- NOTE | 2017-01-08 07:06 | Diag Imaging Result Doc PS360 ---
EXAM: CHEST-PORTABLE HISTORY: sob TECHNIQUE: AP portable upright at 0630 COMMENT: There is less apparent interstitial opacity of the lung bases than on the previous study of 01/04/2017. Otherwise, there has been no significant change. IMPRESSION: COPD. Improved pulmonary edema. Electronically signed by Brannon Maza 01/08/2017 7:04 AM
[2017-01-08] MEDS ORDERED: SOLU-MEDROL IV SCH (08:00)
[2017-01-08] MEDS: BACTROBAN OINTMENT TOP SCH ×2 (08:41→20:02)
[2017-01-08] MEDS: SOLU-MEDROL IV SCH ×2 (08:41→19:49)
[2017-01-08] MEDS ORDERED: PNEUMOVAX 23 IM ONE (09:00)
[2017-01-08] MEDS: ZOFRAN IV PRN (14:42)
[2017-01-08] MEDS: NICODERM PATCH TD SCH (15:08)
[2017-01-08] MEDS: PROTONIX IV SCH (19:49)
[2017-01-08] MEDS: LEVAQUIN 750 MG/D5W 750 MG/150 ML IVPB IV SCH (23:23)
[2017-01-09] MEDS: VANCOMYCIN 1,400 MG in NS 250 ML IV SCH ×2 (03:11→15:40)
[2017-01-09] MEDS: DUONEB (A & A) INH SCH ×6 (03:45→22:50)
[2017-01-09] MEDS: MORPHINE IV PRN (06:00)
[2017-01-09] MEDS: ZOFRAN IV PRN (06:01)
--- NOTE | 2017-01-09 08:25 | Diag Imaging Result Doc PS360 ---
ABDOMEN FLAT/UPRIGHT - 01/09/2017 INDICATION: Abdominal pain TECHNIQUE: Two views COMPARISON: 01/04/1714 FINDINGS: There is significant constipation with fecal impaction of the hepatic and splenic flexures. There are trace pleural effusions. There is COPD in the lung bases. No small bowel obstruction. There are cholecystectomy clips. IMPRESSION: Constipation. Electronically signed by Kelby Chase 01/09/2017 8:22 AM
[2017-01-09] MEDS: BACTROBAN OINTMENT TOP SCH ×3 (08:46→20:12)
[2017-01-09] MEDS: NICODERM PATCH TD SCH (08:46)
--- NOTE | 2017-01-09 10:47 | PROGRESS NOTE ---
DATE: 01/09/2017 SUBJECTIVE: Mr. Cochran is doing fair. This morning, he started having crampy abdominal pain, mild nausea. No vomiting. Pain was moderate. He denied any more diarrhea. I ordered a stool workup. The patient was not able to give any stool specimen. No typical chest pain or palpitations. He does have mild cough. No expectoration. OBJECTIVE: Vital Signs: Noted. Neck: Supple. No JVD. Lungs: Bibasilar crepitations. Occasional wheezing. Cardiovascular: S1 and S2 heard. Abdomen: Soft, globular. Bowel sounds present. Mild epigastric tenderness. No guarding or rigidity. SUPERVISOR CLAIMS: Alert, awake. Able to move all 4 limbs. Diagnostic Data: I repeated a chest x-ray which revealed COPD, improvement in pulmonary edema. Overall, the patient is doing better. CONSIDERATION: 1. Chronic respiratory failure. 2. CO2 retention. 3. Gastritis. 4. Benign prostatic hypertrophy. 5. Pulmonary cachexia. 6. Gastritis. PLAN: We will continue current treatment. Symptomatic care. Close observation. The patient wants to be on nasal cannula all the time which I think patient will need BiPAP intermittently. The patient does have a history of gastritis and duodenitis, evaluated by automotive sales associate last visit. Considering his chronic lung condition, the patient is not a candidate for any intervention. I will treat him symptomatically. Continue rest of the treatment and close observation. The patient claims steroids interfere with his sleep. I am going to taper it down and stop it today. cc: Toan Beckford MD
[2017-01-09] MEDS ORDERED: GOLYTELY PO ONE ×2 (13:14→13:25)
[2017-01-09] MEDS ORDERED: SENOKOT PO ONE ×2 (13:15→13:25)
[2017-01-09] MEDS ORDERED: DULCOLAX PR ONE (14:58)
[2017-01-09] MEDS ORDERED: MILK OF MAGNESIA PO ONE (14:59)
[2017-01-09] MEDS: PROTONIX IV SCH (20:11)
[2017-01-09] MEDS: LEVAQUIN 750 MG/D5W 750 MG/150 ML IVPB IV SCH (23:18)
[2017-01-10] MEDS: DUONEB (A & A) INH SCH ×6 (03:20→23:30)
[2017-01-10] MEDS: VANCOMYCIN 1,400 MG in NS 250 ML IV SCH ×2 (03:26→15:26)
[2017-01-10 05:11] LABS: HEMATOCRIT 38.4 % (42.0-52.0); MCH 32.4 PG (27-31); MCHC 31.3 g/dL (33-37); MCV 103.8 FL (81-99); MPV 9.6 FL (7.4-10.4); RBC 3.7 XMIL (4.7-6.1)
[2017-01-10 05:40] LABS: AGAP 4; ALBUMIN 3.2 g/dL (3.5-5.0); ALKALINE PHOSPHATASE 71 U/L (32-122); BUN 15 mg/dL (8-22); CALCIUM 8.8 mg/dL (8.8-10.2); CHLORIDE 86 mmol/L (98-107); COSMO 274; GOT 19 U/L (10-34); GPT 25 U/L (10-44); MAGNESIUM 1.8 mg/dL (1.5-2.7); POTASSIUM 3.7 mmol/L (3.5-5.1); SODIUM 137 mmol/L (136-145); TCO2 47 mmol/L (25-35); TOTAL BILIRUBIN 0.37 mg/dL (0.20-1.00); TOTAL PROTEIN 5.6 g/dL (6.3-8.3)
[2017-01-10 06:39] LABS: ALLEN TEST YES; BE 24.7 mmoll (-3.0-3.0); BLOOD TYPE ARTERIAL; DRAW SITE R RADIAL; METHB 1.1 % (0.0-1.5); O2(CT) 16.5 mL/dL (15.0-23.0); PO2(98.6) 65 mmHg (60-100); SAMPLE BLOOD; SAO2 96.3 % (95.0-100.0); THB 12.6 g/dL (11.5-17.4); pH(98.6) 7.41 (7.35-7.45)
[2017-01-10 06:40] LABS: MODALITY VENTIMASK; PCO2(98.6) 86 mmHg (35-45)
--- NOTE | 2017-01-10 06:48 | PROGRESS NOTE ---
DATE: 01/10/2017 SUBJECTIVE: Mr. Cochran is doing better. The patient received GoLYTELY yesterday. He did have a good bowel movement. He denied any high-grade fever or chills. The patient is using Ventimask. Patient wants to try nasal cannula. The patient does have chronic respiratory failure. We did discuss about discharge planning. The patient is reluctant. No nausea or vomiting. Oral intake is fair. No typical chest pain. His vital signs noted. Neck is supple. No JVD. Lungs: Bilateral good air entry present. Occasional wheezing. CVS: S1 and S2 heard. Abdomen soft. No distention. Bowel sounds present. Extremities: No cyanosis, clubbing. No acute DVT. Central Nervous System: Alert, awake, answering questions fairly well. LABORATORY DATA: Blood work done today. Hemoglobin 12, hematocrit 38.4, platelet count 249,000. WBC count 10.78. Electrolytes fairly benign. I am going to get blood gas done. We will try nasal cannula. The patient claims he was using nasal cannula at home, which I doubt. Patient does need BiPAP considering his chronic respiratory failure. His repeat chest x-ray results reviewed. Abdominal x-ray also noted. CONSIDERATIONS: 1. Chronic respiratory failure. 2. Pneumonia. 3. Benign prostatic hypertrophy. 4. Gastritis. 5. Pulmonary cachexia. Overall, the patient is off the steroid. PLAN: We will continue antibiotics and close observation. His blood culture is negative. Stool workup was also negative. Sputum was normal keith. Overall plan discussed with the patient. cc: Toan Beckford MD
[2017-01-10] MEDS: NICODERM PATCH TD SCH (09:05)
[2017-01-10] MEDS: BACTROBAN OINTMENT TOP SCH ×2 (09:06→20:31)
[2017-01-10] MEDS: ZOFRAN IV PRN (11:06)
[2017-01-10] MEDS: PROTONIX IV SCH (20:31)
[2017-01-10] MEDS: LEVAQUIN 750 MG/D5W 750 MG/150 ML IVPB IV SCH (23:24)
[2017-01-11] MEDS: DUONEB (A & A) INH SCH ×2 (03:25→07:53)
[2017-01-11] MEDS: VANCOMYCIN 1,400 MG in NS 250 ML IV SCH (03:34)
[2017-01-11] MEDS: ZOFRAN IV PRN ×2 (07:50→13:18)
[2017-01-11] MEDS: NICODERM PATCH TD SCH ×2 (07:50→09:45)
[2017-01-11] MEDS: BACTROBAN OINTMENT TOP SCH (09:45)
[2017-01-11 12:04] VITALS: BP 101/59
--- NOTE | 2017-01-11 16:24 | DISCHARGE SUMMARY ---
ADMISSION DATE: 01/04/2017 DISCHARGE DATE: 01/11/2017 FINAL DISCHARGE DIAGNOSES: 1. Acute hypercapnic respiratory failure. 2. Chronic obstructive pulmonary disease exacerbation. 3. Left lower lobe pneumonia. 4. Benign prostatic hypertrophy. 5. Pulmonary cachexia. 6. Gastritis and gastroesophageal reflux disease. 7. Coronary artery disease. 8. End-stage chronic obstructive pulmonary disease. HISTORY OF PRESENT ILLNESS: Mr. Cochran is a 61-year-old, white gentleman, known case of end- stage COPD, chronic respiratory failure noncompliant to treatment regimen. Unfortunately patient is still smoking. Came with chills, increasing cough, chest congestion, shortness of breath and low oxygen saturation. The patient came to the emergency room. His initial blood gas did reveal pCO2 of 100. The patient was weak and lethargic. Evaluated by ER physician and admitted for further care. Patient was using Trilogy at home. The patient was still smoking. Patient requested DNR. Chest x-ray did reveal bronchopneumonia. Patient was started on BiPAP broad- spectrum antibiotics and a short course of steroids. The steroids were making patient very nervous. We tapered steroid quickly. His clinical condition improved. The patient was able to tolerate nasal cannula. He was using BiPAP at night. The patient received maximum benefit of hospitalization. Discussed discharge planning with wagon washer. Dr. Lara's note from the th reviewed. Discussed with the patient today, and he feels comfortable to go home with discharge plan. Encouraged him not to smoke and to use his Trilogy on p.r.n. basis. Continue bronchodilator treatment. Fall precaution. I am going to get him home health. OBJECTIVE: Vital Signs: Vital signs noted. Neck: Supple. No JVD. Lungs: Bibasilar, few crepitations. Heart: S1 and S2 heard. Abdomen: Soft, nontender. Bowel sounds present. Mild epigastric tenderness. No guarding or rigidity. Extremities: No cyanosis, clubbing. No acute DVT. Diffuse atrophy of lower limb. [employer]: Alert, awake able to move all 4 limbs. LABORATORY DATA: Blood gas done yesterday pH 7.41, pCO2 86, PO2 was 65. This was done on FiO2 of 40% via Ventimask. CBC: WBC count 10.78, hemoglobin 12, hematocrit 38.4. Platelet count 249,000. Electrolytes done yesterday. BUN 15, creatinine 0.5, potassium 3.7. Sputum was normal keith. Blood culture was negative. Overall patient is doing better. He received maximum benefit of hospitalization. His magnesium done yesterday was 1.8. DISPOSITION: I am going to discharge patient home tomorrow for the discharge the patient home today. DISCHARGE PLAN: Discussed at length with the patient and he is in agreement. cc: Toan Beckford MD
== END 2017-01-11 13:56 | disposition hospice, home (50) ==
LOC: ED 19:56 → SUATTDRO 19:57 → SUPCPDRO 19:57 → 3S 19:57 → DIRADM 01-08 09:19
PROVIDERS: ADMIT Internal Medicine; ATTEND Internal Medicine